=== PATIENT | male | born 1965 | race Caucasian/White ===

== ENCOUNTER 2021-05-12 13:23 | Outpatient (CLI) | payer OTHER | END 2021-05-12 13:24 | disposition home or self-care (01) | LOC: TBSIIMAG 13:23 | PROVIDERS: ATTEND Neurological Surgery | DX: M51.16 Intervertebral disc disorders with radiculopathy, lumbar region (principal); M25.559 Pain in unspecified hip | CPT/HCPCS: 72148 ==

== ENCOUNTER 2024-03-26 18:44 | Emergency (ER) | payer OTHER, SELFPAY ==
[2024-03-26] MEDS ORDERED: Bupivacaine 0.25% 10 ML VIAL ONE (19:04)
[2024-03-26] MEDS ORDERED: Boostrix 0.5 ML (Tdap) VIAL (>/=7 yrs of age) ONE (19:33)
== END 2024-03-26 21:00 | disposition home or self-care (01) ==
LOC: ERS 18:44
DX: S92.421A Displaced fracture of distal phalanx of right great toe, initial encounter for closed fracture (principal); S92.531A Displaced fracture of distal phalanx of right lesser toe(s), initial encounter for closed fracture; S91.211A Laceration without foreign body of right great toe with damage to nail, initial encounter; F17.220 Nicotine dependence, chewing tobacco, uncomplicated; V04.90XA Pedestrian on foot injured in collision with heavy transport vehicle or bus, unspecified whether traffic or nontraffic accident, initial encounter; Y93.89 Activity, other specified; Z23 Encounter for immunization
CPT/HCPCS: 12002; 90471; 90715; J0665